=== PATIENT | male | born 1970 | race Caucasian/White ===

== ENCOUNTER 2017-03-20 08:50 | Outpatient (CLI) | payer OTHER | END 2017-03-20 09:23 | disposition home or self-care (01) | LOC: LAB 08:50 | DX: I82.C11 Acute embolism and thrombosis of right internal jugular vein (principal); I80.221 Phlebitis and thrombophlebitis of right popliteal vein; I80.222 Phlebitis and thrombophlebitis of left popliteal vein; D50.8 Other iron deficiency anemias; D51.8 Other vitamin B12 deficiency anemias; I10 Essential (primary) hypertension; D68.61 Antiphospholipid syndrome; D68.62 Lupus anticoagulant syndrome; D68.59 Other primary thrombophilia; E72.11 Homocystinuria; E72.12 Methylenetetrahydrofolate reductase deficiency; D68.311 Acquired hemophilia; D68.52 Prothrombin gene mutation; D68.51 Activated protein C resistance; R97.0 Elevated carcinoembryonic antigen [CEA]; R97.8 Other abnormal tumor markers ==

== ENCOUNTER 2017-04-20 10:01 | Outpatient (CLI) | payer OTHER | END 2017-04-20 10:18 | disposition home or self-care (01) | LOC: LAB 10:01 | DX: D68.61 Antiphospholipid syndrome (principal); D68.62 Lupus anticoagulant syndrome; R97.0 Elevated carcinoembryonic antigen [CEA]; I80.222 Phlebitis and thrombophlebitis of left popliteal vein; D68.69 Other thrombophilia; E83.10 Disorder of iron metabolism, unspecified; R79.89 Other specified abnormal findings of blood chemistry; D50.8 Other iron deficiency anemias; D51.8 Other vitamin B12 deficiency anemias; I10 Essential (primary) hypertension; I80.221 Phlebitis and thrombophlebitis of right popliteal vein; I82.1 Thrombophlebitis migrans ==